=== PATIENT | male | born 1985 | race Caucasian/White ===

== ENCOUNTER → 2016-06-23 | Outpatient (CLI) | payer BC ==
[~2016-06-23] MED LIST: CYCL10TA6 PO; OXYC-57 PO
[2016-06-23 12:44] LABS: BASO % 0.7 %; BASO ABS # 0.03 K/uL (0-0.2); COMPLETE YES; EOS % 5.3 %; HEMATOCRIT 44.3 % (42-52); IG% 0.2 %; LYMPH % 37.4 %; LYMPH ABS # 1.69 K/uL (1.2-3.4); MEAN CELL VOLUME 89.1 fL (80-100); MEAN CORPUSCULAR HEMOGLOBIN 31.4 pg (25-34); MEAN CORPUSCULAR HGB CONC 35.2 g/dl (32-36); MEAN PLATELET VOLUME 11.5 fL (7.4-10.4); MONO % 12.6 %; NEUT % 43.8 %; PLATELET COUNT 234 K/uL (130-400); RED BLOOD COUNT 4.97 M/uL (4.7-6.1); WHITE BLOOD COUNT 4.52 K/uL (4.8-10.8)
[2016-06-23 12:59] LABS: ALT/SGPT 21 U/L (12-78); BLOOD UREA NITROGEN 15 mg/dl (7-18); CARBON DIOXIDE 28 mmol/L (21-32); CHLORIDE 104 mmol/L (98-107); CHOLESTEROL 177 mg/dl (0-200); GLUCOSE 102 mg/dl (70-99); POTASSIUM 3.9 mmol/L (3.5-5.1); SODIUM 140 mmol/L (136-145); TRIGLYCERIDES 49 mg/dl (0-150); VERY LOW DENSITY LIPOPROT CALC 10 mg/dl
[2016-06-23 13:10] LABS: ALB/GLOB RATIO 1.4 (0.9-2); ALKALINE PHOSPHATASE 66 U/L (45-117); AST/SGOT 15 U/L (15-37); CHOLESTEROL/HDL RATIO 3.1; HDL CHOLESTEROL 58 mg/dl; LDL CHOLESTEROL CALCULATED 109 mg/dl
[2016-06-23 14:40] LABS: LYME DISEASE AB IGG NEG (NEG); LYME DISEASE AB IGM NEG (NEG)
== END | disposition home or self-care (01) ==
LOC: C.LABPBG 07:49
PROVIDERS: ATTEND Neuromusculoskeletal Medicine & OMM
DX: Z00.00 Encounter for general adult medical examination without abnormal findings (principal); Z91.89 Other specified personal risk factors, not elsewhere classified

== ENCOUNTER 2016-09-17 09:33 | Emergency (ER) | payer BC ==
[~2016-09-17] VITALS: Ht 188 cm; Wt 86.3 kg
[2016-09-17 09:38] VITALS: TEMP 36.5; Ht 188 cm; Wt 86.3 kg
[2016-09-17] MEDS ORDERED: DEXAMETHASONE SOD INJ 10 MG/ML VIAL IM STA (09:46)
[2016-09-17] MEDS ORDERED: HYDROmorphone INJ 2 MG/ML SYR/VIAL IM STA (09:46)
[2016-09-17] MEDS ORDERED: KETOROLAC TROMETHAMINE 60 MG/2 ML VIAL IM STA (09:46)
--- NOTE | 2016-09-17 09:57 | EMERGENCY ROOM VISIT NOTE ---
History Report prepared by Aayush: Lisandro Rosado Under the Supervision of: Dr. Tomer Barboza M.D. First contact with patient: 09:42 Chief Complaint: BACK PAIN Stated Complaint: BACK PAIN History of Present Illness The patient is a 31 year old male who presents to the Emergency Room with complaints of intermittent lower back pain that began a couple of days ago. He rates his pain an 8/10 in severity. The patient's back has been bothering him for quite some time, however, recently it has been exceptionally worse. For his occupation, he works with [employer], so he frequently active. His pain is shooting down both of his legs. He denies any other symptoms at this time. Source of History: patient Onset: a couple of days ago Position: back (lower) Symptom Intensity: 8/10 Quality: other (shooting) Timing: intermittent Note: His pain radiates down both of his legs. He denies any other symptoms. Review of Systems See HPI for pertinent positives & negatives. A total of 10 systems reviewed and were otherwise negative. Past Medical & Surgical Surgical Problems: (1) Hx of tonsillectomy Family History Cancer Heart disease Stroke Social History Smoking Status: Former Smoker Smokeless Tobacco Use: Yes Alcohol Use: other (Rarely) Drug Use: none Marital Status: in relationship Housing Status: lives with roommate Occupation Status: employed Current/Historical Medications Scheduled Cyclobenzaprine Hcl (Flexeril), 10 MG PO TID Scheduled PRN Oxycodone/Acetaminophen 5MG/325MG (Percocet 5MG/325MG), 1-2 TAB PO Q4H PRN for Pain Allergies Coded Allergies: No Known Allergies (Unverified , 09/17/16) Physical Exam Vital Signs Date Time Temp Pulse Resp B/P Pulse Ox O2 Delivery O2 Flow Rate FiO2 09/17/16 11:05 64 15 109/65 99 Room Air 09/17/16 09:38 36.5 100 16 146/92 95 Room Air Physical Exam GENERAL: Patient is a healthy-appearing well-nourished. HEAD: Normocephalic atraumatic EYES: Ocular movements intact pupils equal and react to light OROPHARYNX mucous membranes are moist no exudates present no erythema or edema present NECK: Supple no nuchal rigidity. No midline tenderness. CHEST: Good equal expansion LUNGS: Clear and equal to auscultation CARDIAC: Normal S1 and S2 ABDOMEN: Soft nontender no guarding BACK: Can walk on tiptoes and heels. No evidence of saddle anesthesia. No midline pain. Tender to the right lumbar area. EXTREMITIES: No pain upon palpation normal muscle strength in all groups no clubbing cyanosis or edema NEURO: Patient is following commands is answering questions appropriately. Alert and oriented x3 Cranial Nerves 2-12 grossly intact Medical Decision & Procedures ER Provider Diagnostic Interpretation: Radiology results as stated below per my review and radiologist interpretation: L-SPINE MIN 4 VIEWS ROUTINE CLINICAL HISTORY: Persistent low back pain COMPARISON STUDY: No previous studies for comparison. FINDINGS: No fractures or subluxations are visualized. No destructive lesions are evident on conventional radiographic imaging IMPRESSION: Unremarkable conventional radiographic evaluation of the lumbar spine. Electronically signed by: Terence Orantes M.D. 09/17/2016 10:19 AM Dictated Date/Time: 09/17/2016 10:18 AM Medications Administered Medications (Trade) Dose Ordered Sig/Chema Route Start Time Stop Time Status Last Admin Dose Admin Dexamethasone Sodium Phosphate (Decadron Inj) 10 mg NOW STAT IM 09/17/16 09:46 09/17/16 09:49 DC 09/17/16 10:00 10 MG Ketorolac Tromethamine (Toradol Inj) 60 mg NOW STAT IM 09/17/16 09:46 09/17/16 09:49 DC 09/17/16 10:00 60 MG Hydromorphone HCl (Dilaudid Inj) 2 mg NOW STAT IM 09/17/16 09:46 09/17/16 09:49 DC 09/17/16 09:57 2 MG ED Course 0942: Past medical records reviewed. The patient was evaluated in room A11. A complete history and physical examination was performed. 0946: Ordered Dilaudid Inj 2 mg IM, Toradol Inj 60 mg IM, Decadron Inj 10 mg IM 1112: Upon reexamination the patient is resting. I discussed results and treatment plan with the patient. He verbalizes agreement and understanding. The patient is ready for discharge. Medical Decision Differential diagnosis: Etiologies such as fracture, dislocation, neurovascular compromise, compartment syndrome, soft tissue injury, as well as others were entertained. This is a 31-year-old male who presents emergency part complaining of low back pain. The patient is able to walk and tiptoes and his heels has no evidence of satellite a seizure and did not lose control of bowel or bladder. Based on these findings I felt the patient's pain can be treated conservatively therefore he was given Dilaudid Decadron as well as Toradol. Repeat examination revealed much improvement the patient's symptoms. The patient's x- ray results are as above I do feel that the patient is well enough he can be safely discharged home. Patient was in agreement with the treatment plan. Impression Primary Impression: Lumbar pain with radiation down leg Scribe Attestation The scribe's documentation has been prepared under my direction and personally reviewed by me in its entirety. I confirm that the note above accurately reflects all work, treatment, procedures, and medical decision making performed by me. Departure Information Dispostion Home / Self-Care Prescriptions Oxycodone/Acetaminophen 5MG/325MG (PERCOCET 5MG/325MG) Tab 1-2 TAB PO Q4H Y for Pain, #14 TAB Prov: Tomer Barboza MD 09/17/16 Cyclobenzaprine Hcl (FLEXERIL) 10 Mg Tab 10 MG PO TID, #21 TAB Prov: Tomer Barboza MD 09/17/16 Referrals Nadeem Calle D.O. (PCP) Van Dallas D.O. Forms HOME CARE DOCUMENTATION FORM, IMPORTANT VISIT INFORMATION, School Instructions, Work Instructions Patient Instructions Back Pain - [facility], ED Back Care Tips, ED Exercises Lumbar Muscles, My [facility] Additional Instructions Follow up with DR Dallas's office You received narcotic or benzodiazepene medication while in the emergency room today. Do not drive, operate heavy machinery, or drink alcohol under the influence of this medication. Take 600 mg Ibuprofen every 6 hours Take Flexeril as directed Take Percocet for breakthrough pain You have been examined and treated today on an emergency basis only. This is not a substitute for, or an effort to provide, complete comprehensive medical care. It is impossible to recognize and treat all injuries or illnesses in a single emergency department visit. It is therefore important that you follow up closely with DR Calle. Call as soon as possible for an appointment. Thank you for your time and consideration. I look forward to speaking with you again soon. Please don't hesitate to call us if you have any questions.
--- NOTE | 2016-09-17 10:34 | DIAGNOSTIC IMAGING REPORT ---
L-SPINE MIN 4 VIEWS ROUTINE CLINICAL HISTORY: Persistent low back pain COMPARISON STUDY: No previous studies for comparison. FINDINGS: No fractures or subluxations are visualized. No destructive lesions are evident on conventional radiographic imaging IMPRESSION: Unremarkable conventional radiographic evaluation of the lumbar spine. Electronically signed by: Terence Orantes M.D. 09/17/2016 10:19 AM Dictated Date/Time: 09/17/2016 10:18 AM
[2016-09-17] MEDS ORDERED: CYCL10TA6 PO (10:51)
[2016-09-17] MEDS ORDERED: OXYC-57 PO (10:51)
[2016-09-17 11:05] VITALS: BP 109/65; PULSE 64; O2SAT 99
== END 2016-09-17 11:11 | disposition home or self-care (01) ==
LOC: C.EDB 09:34 → C.EDA 11:11
DX: M54.5 Low back pain (principal); Z90.49 Acquired absence of other specified parts of digestive tract; Z87.891 Personal history of nicotine dependence; Z80.9 Family history of malignant neoplasm, unspecified; Z82.49 Family history of ischemic heart disease and other diseases of the circulatory system; Z82.3 Family history of stroke